=== PATIENT | male | born 1945 | race Caucasian/White ===

== ENCOUNTER → 2016-07-10 | Outpatient (CLI) | payer OTHER, BC | LOC: HYPER 08:26 | DX: T81.4XXD Infection following a procedure, subsequent encounter (principal); I10 Essential (primary) hypertension; B36.9 Superficial mycosis, unspecified; I25.10 Atherosclerotic heart disease of native coronary artery without angina pectoris; Z87.891 Personal history of nicotine dependence; Y83.8 Other surgical procedures as the cause of abnormal reaction of the patient, or of later complication, without mention of misadventure at the time of the procedure ==

== ENCOUNTER → 2016-07-16 | Outpatient (CLI) | payer OTHER, BC | LOC: HYPER 07:42 | DX: T87.89 Other complications of amputation stump (principal); T81.4XXA Infection following a procedure, initial encounter; I10 Essential (primary) hypertension; B36.9 Superficial mycosis, unspecified; I25.10 Atherosclerotic heart disease of native coronary artery without angina pectoris; Z87.891 Personal history of nicotine dependence; Y83.5 Amputation of limb(s) as the cause of abnormal reaction of the patient, or of later complication, without mention of misadventure at the time of the procedure ==

== ENCOUNTER → 2016-08-28 | Outpatient (CLI) | payer OTHER, BC | LOC: HYPER 06:57 | DX: T81.4XXD Infection following a procedure, subsequent encounter (principal); T87.89 Other complications of amputation stump; B36.9 Superficial mycosis, unspecified; I10 Essential (primary) hypertension; I25.10 Atherosclerotic heart disease of native coronary artery without angina pectoris; Z47.81 Encounter for orthopedic aftercare following surgical amputation; Z87.891 Personal history of nicotine dependence; Y83.5 Amputation of limb(s) as the cause of abnormal reaction of the patient, or of later complication, without mention of misadventure at the time of the procedure ==

== ENCOUNTER → 2016-09-10 | Outpatient (CLI) | payer OTHER, BC | LOC: HYPER 07:12 | DX: T87.89 Other complications of amputation stump (principal); T81.4XXA Infection following a procedure, initial encounter; I10 Essential (primary) hypertension; B36.9 Superficial mycosis, unspecified; I25.10 Atherosclerotic heart disease of native coronary artery without angina pectoris; Z47.81 Encounter for orthopedic aftercare following surgical amputation; Z87.891 Personal history of nicotine dependence; Y83.5 Amputation of limb(s) as the cause of abnormal reaction of the patient, or of later complication, without mention of misadventure at the time of the procedure ==

== ENCOUNTER → 2016-10-01 | Outpatient (CLI) | payer OTHER, BC | LOC: HYPER 07:06 | DX: T87.89 Other complications of amputation stump (principal); T81.4XXD Infection following a procedure, subsequent encounter; I10 Essential (primary) hypertension; B36.9 Superficial mycosis, unspecified; I25.10 Atherosclerotic heart disease of native coronary artery without angina pectoris; Z47.81 Encounter for orthopedic aftercare following surgical amputation; Z87.891 Personal history of nicotine dependence; Y83.5 Amputation of limb(s) as the cause of abnormal reaction of the patient, or of later complication, without mention of misadventure at the time of the procedure ==

== ENCOUNTER → 2016-10-30 | Outpatient (CLI) | payer OTHER, BC | LOC: HYPER 06:44 | DX: T81.4XXD Infection following a procedure, subsequent encounter (principal); I25.10 Atherosclerotic heart disease of native coronary artery without angina pectoris; I10 Essential (primary) hypertension; B36.9 Superficial mycosis, unspecified; Z47.81 Encounter for orthopedic aftercare following surgical amputation; Z87.891 Personal history of nicotine dependence; Y83.8 Other surgical procedures as the cause of abnormal reaction of the patient, or of later complication, without mention of misadventure at the time of the procedure ==

== ENCOUNTER → 2016-11-28 | Outpatient (CLI) | payer OTHER, BC | LOC: HYPER 07:12 | DX: T81.4XXD Infection following a procedure, subsequent encounter (principal); I10 Essential (primary) hypertension; B36.9 Superficial mycosis, unspecified; I25.10 Atherosclerotic heart disease of native coronary artery without angina pectoris; Z87.891 Personal history of nicotine dependence; Y83.8 Other surgical procedures as the cause of abnormal reaction of the patient, or of later complication, without mention of misadventure at the time of the procedure ==

== ENCOUNTER → 2016-12-12 | Outpatient (CLI) | payer OTHER, BC | LOC: HYPER 06:57 | DX: T81.4XXD Infection following a procedure, subsequent encounter (principal); I10 Essential (primary) hypertension; B36.9 Superficial mycosis, unspecified; R21 Rash and other nonspecific skin eruption; Z47.81 Encounter for orthopedic aftercare following surgical amputation; I25.10 Atherosclerotic heart disease of native coronary artery without angina pectoris; Z87.891 Personal history of nicotine dependence; Y83.8 Other surgical procedures as the cause of abnormal reaction of the patient, or of later complication, without mention of misadventure at the time of the procedure ==

== ENCOUNTER → 2017-06-26 | Outpatient (CLI) | payer OTHER, BC | LOC: HYPER 06:49 | DX: T87.89 Other complications of amputation stump (principal); L89.95 Pressure ulcer of unspecified site, unstageable; I10 Essential (primary) hypertension; I25.10 Atherosclerotic heart disease of native coronary artery without angina pectoris; Z87.891 Personal history of nicotine dependence; Y83.5 Amputation of limb(s) as the cause of abnormal reaction of the patient, or of later complication, without mention of misadventure at the time of the procedure ==

== ENCOUNTER → 2017-07-17 | Outpatient (CLI) | payer OTHER, BC | LOC: HYPER 06:44 | DX: T87.89 Other complications of amputation stump (principal); L89.890 Pressure ulcer of other site, unstageable; I25.10 Atherosclerotic heart disease of native coronary artery without angina pectoris; I10 Essential (primary) hypertension; Z87.891 Personal history of nicotine dependence; Y83.5 Amputation of limb(s) as the cause of abnormal reaction of the patient, or of later complication, without mention of misadventure at the time of the procedure ==

== ENCOUNTER → 2018-11-18 | Outpatient (CLI) | payer OTHER, BC | LOC: HYPER 11-05 06:56 | DX: T87.81 Dehiscence of amputation stump (principal); L97.512 Non-pressure chronic ulcer of other part of right foot with fat layer exposed; I10 Essential (primary) hypertension; I25.10 Atherosclerotic heart disease of native coronary artery without angina pectoris; Z87.891 Personal history of nicotine dependence; Y83.5 Amputation of limb(s) as the cause of abnormal reaction of the patient, or of later complication, without mention of misadventure at the time of the procedure ==

== ENCOUNTER → 2018-12-03 | Outpatient (CLI) | payer OTHER, BC | LOC: HYPER 10:00 | DX: T87.43 Infection of amputation stump, right lower extremity (principal); L97.812 Non-pressure chronic ulcer of other part of right lower leg with fat layer exposed; M86.9 Osteomyelitis, unspecified; E78.5 Hyperlipidemia, unspecified; D12.6 Benign neoplasm of colon, unspecified; G47.33 Obstructive sleep apnea (adult) (pediatric); G25.0 Essential tremor; I48.91 Unspecified atrial fibrillation; I35.8 Other nonrheumatic aortic valve disorders; I10 Essential (primary) hypertension; I25.10 Atherosclerotic heart disease of native coronary artery without angina pectoris; Z87.891 Personal history of nicotine dependence; Y83.5 Amputation of limb(s) as the cause of abnormal reaction of the patient, or of later complication, without mention of misadventure at the time of the procedure ==

== ENCOUNTER → 2018-12-17 | Outpatient (CLI) | payer OTHER, BC | LOC: HYPER 10:45 | DX: T87.43 Infection of amputation stump, right lower extremity (principal); L97.812 Non-pressure chronic ulcer of other part of right lower leg with fat layer exposed; M86.9 Osteomyelitis, unspecified; I10 Essential (primary) hypertension; I25.10 Atherosclerotic heart disease of native coronary artery without angina pectoris; I48.91 Unspecified atrial fibrillation; I35.8 Other nonrheumatic aortic valve disorders; D12.6 Benign neoplasm of colon, unspecified; E78.5 Hyperlipidemia, unspecified; G47.33 Obstructive sleep apnea (adult) (pediatric); G25.0 Essential tremor; Z91.81 History of falling; Z87.891 Personal history of nicotine dependence; Z89.511 Acquired absence of right leg below knee; Y83.5 Amputation of limb(s) as the cause of abnormal reaction of the patient, or of later complication, without mention of misadventure at the time of the procedure ==

== ENCOUNTER → 2018-12-23 | Outpatient (CLI) | payer OTHER, BC | LOC: HYPER 08:15 | DX: T87.43 Infection of amputation stump, right lower extremity (principal); L97.812 Non-pressure chronic ulcer of other part of right lower leg with fat layer exposed; M86.9 Osteomyelitis, unspecified; I48.91 Unspecified atrial fibrillation; I35.8 Other nonrheumatic aortic valve disorders; I10 Essential (primary) hypertension; E78.5 Hyperlipidemia, unspecified; G47.33 Obstructive sleep apnea (adult) (pediatric); G25.0 Essential tremor; D12.6 Benign neoplasm of colon, unspecified; I25.10 Atherosclerotic heart disease of native coronary artery without angina pectoris; Z91.81 History of falling; Z89.511 Acquired absence of right leg below knee; Z87.891 Personal history of nicotine dependence; Y83.5 Amputation of limb(s) as the cause of abnormal reaction of the patient, or of later complication, without mention of misadventure at the time of the procedure ==

== ENCOUNTER → 2018-12-31 | Outpatient (CLI) | payer OTHER, BC | LOC: HYPER 10:30 | DX: T87.43 Infection of amputation stump, right lower extremity (principal); L97.812 Non-pressure chronic ulcer of other part of right lower leg with fat layer exposed; M86.9 Osteomyelitis, unspecified; D12.6 Benign neoplasm of colon, unspecified; E78.5 Hyperlipidemia, unspecified; G47.33 Obstructive sleep apnea (adult) (pediatric); G25.0 Essential tremor; I48.91 Unspecified atrial fibrillation; I35.8 Other nonrheumatic aortic valve disorders; I10 Essential (primary) hypertension; I25.10 Atherosclerotic heart disease of native coronary artery without angina pectoris; Z87.891 Personal history of nicotine dependence; Y83.5 Amputation of limb(s) as the cause of abnormal reaction of the patient, or of later complication, without mention of misadventure at the time of the procedure ==

== ENCOUNTER → 2019-01-07 | Outpatient (CLI) | payer OTHER, BC | LOC: HYPER 07:57 | DX: T87.43 Infection of amputation stump, right lower extremity (principal); L97.812 Non-pressure chronic ulcer of other part of right lower leg with fat layer exposed; E78.5 Hyperlipidemia, unspecified; M86.9 Osteomyelitis, unspecified; D12.6 Benign neoplasm of colon, unspecified; G47.33 Obstructive sleep apnea (adult) (pediatric); G25.0 Essential tremor; I10 Essential (primary) hypertension; I25.10 Atherosclerotic heart disease of native coronary artery without angina pectoris; I48.91 Unspecified atrial fibrillation; I35.8 Other nonrheumatic aortic valve disorders; Z87.891 Personal history of nicotine dependence; Y83.5 Amputation of limb(s) as the cause of abnormal reaction of the patient, or of later complication, without mention of misadventure at the time of the procedure ==

== ENCOUNTER → 2019-01-19 | Outpatient (CLI) | payer OTHER, BC | LOC: HYPER 01:10 | DX: T87.43 Infection of amputation stump, right lower extremity (principal); L97.812 Non-pressure chronic ulcer of other part of right lower leg with fat layer exposed; M86.9 Osteomyelitis, unspecified; I48.91 Unspecified atrial fibrillation; I25.10 Atherosclerotic heart disease of native coronary artery without angina pectoris; I35.8 Other nonrheumatic aortic valve disorders; I10 Essential (primary) hypertension; E78.5 Hyperlipidemia, unspecified; G47.33 Obstructive sleep apnea (adult) (pediatric); G25.0 Essential tremor; D12.6 Benign neoplasm of colon, unspecified; Z87.891 Personal history of nicotine dependence; Z91.81 History of falling; Z89.511 Acquired absence of right leg below knee; Y83.5 Amputation of limb(s) as the cause of abnormal reaction of the patient, or of later complication, without mention of misadventure at the time of the procedure ==

== ENCOUNTER → 2019-01-28 | Outpatient (CLI) | payer OTHER, BC | LOC: HYPER 07:20 | DX: T87.43 Infection of amputation stump, right lower extremity (principal); L97.812 Non-pressure chronic ulcer of other part of right lower leg with fat layer exposed; M86.9 Osteomyelitis, unspecified; I48.91 Unspecified atrial fibrillation; I35.8 Other nonrheumatic aortic valve disorders; I10 Essential (primary) hypertension; I25.10 Atherosclerotic heart disease of native coronary artery without angina pectoris; E78.5 Hyperlipidemia, unspecified; G47.33 Obstructive sleep apnea (adult) (pediatric); D12.6 Benign neoplasm of colon, unspecified; G25.0 Essential tremor; Z91.81 History of falling; Z87.891 Personal history of nicotine dependence; Z89.511 Acquired absence of right leg below knee; Y83.5 Amputation of limb(s) as the cause of abnormal reaction of the patient, or of later complication, without mention of misadventure at the time of the procedure ==